=== PATIENT | male | born 1955 | race Caucasian/White ===

== ENCOUNTER 2016-06-27 11:54 | Emergency (ER) | payer OTHER ==
--- NOTE | 2016-06-27 13:28 | ED NURSING NOTES ---
Clinical Report - Nurses [facility] [address] [place] [address] 06/27/2016 11:55 Patient: JACKELYN MAK TRIAGE Triage time 12:Jun 27 2016. Acuity: LEVEL 4. Chief Complaint: REDNESS, PAIN and VISION PROBLEM TO RIGHT EYE. 12:14 06/27/16. SEPSIS SCREEN: Sepsis Screen. Negative (no infection suspected/documented). LAKISHA COMA SCORE: [place] Coma Scale: 15- eyes open spontaneously (4); best verbal response- oriented x 4 (5); best motor response- obeys commands (6). --12:14 Lilian Morris R.N. 12:06 06/27/16. BP: 132/73 (regular adult cuff) taken on the left arm, while sitting. HR: 66. RR: 18 (regular). O2 saturation: 98% on room air. Temp: 98.1 F (oral). Pain level now: 5/10. Additional comments: In right eye. --12:14 Lilian Morris R.N. Weight: 140.6 kg stated. Height/Length: 72 inches Per Patient. BMI: 42.1. --12:11 Lilian Morris R.N. Medications Antidepressant. Omeprazole Oral. --12:10 Lilian Morris R.N. Xarelto Oral (Tablet 15 mg) 1 tablet, daily. --12:33 Lilian Morris R.N. Allergies No Known Drug Allergy. --12:10 Lilian Morris R.N. History Arrived by private vehicle. Historian: patient. Primary physician (Dr Adler). Onset. (three weeks ago). Mechanism- Napkin went in patients eye while blowing nose. He has had eye discomfort, eye irritation and blurred vision. He has had a moderate amount of watery discharge from the right eye. 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 PAST MEDICAL HX: Hypertension. SOCIAL HX: Smoker- current status unknown. Occasional alcohol use; consumes beer. No drug use. No infectious disease exposure. ABUSE ASSESSMENT: No report of abuse. --12:14 Lilian Morris R.N. PROBLEMS: Dyspnea. Chest Wall Pain. Anxiety Reaction. Esophageal Foreign Body. Hypertension. Gastroesophageal Reflux Disease. --12:11 Lilian Morris R.N. ADDITIONAL SURGERIES: no known surgeries. Interventions ID band on patient. To treatment room. --12:14 Lilian Morris R.N. PHYSICAL ASSESSMENT 12:18 06/27/16. Ambulatory to room. GENERAL / NEURO / PSYCH: Alert. Appears in no acute distress. HEENT: No facial asymmetry noted. Pupils equal, round and reactive to light. ( Patient reports he had a visual acuity test done yesterday at physicians and doesn't remember results, He complains of blurred vision). Runny nose. ( patient says his nose is swollen and his right ear was hurting but after abx drops that has gone away). RESPIRATORY: Respirations not labored. CVS: Capillary refill less than 2 seconds. SKIN: Skin is warm. Normal skin turgor. --12:18 Lilian Morris R.N. ( Patient refused visual acuity until he sees the physician). --12:34 Lilian Morris R.N. NURSING PROGRESS NOTES 12:18 06/27/16. The plan of care for this patient has been created. Head of bed elevated. Reassurance given. Two patient identifiers checked. Call light placed in reach. Bed placed in lowest position. Brakes of bed on. Patient ready for evaluation- chart flagged and ED physician notified. --12:18 Lilian Morris R.N. DISPOSITION / DISCHARGE Departure time: 13:34. No learning barriers present. Discharge instructions provided and reviewed with the patient. Reviewed medication(s) side effects information. Prescription(s) given to the patient. Treatments reviewed. Reviewed referral to an performance improvement coordinator. Patient verbalized understanding. Written instructions provided in Moroccan. The patient was discharged by the physician junior administrative assistant. He was discharged home. He left the Emergency Department ambulatory and via private vehicle. Patient driving. --13:34 Herminia De Los Santos R.N. 13:32 06/27/16. BP: 129/74. HR: 73. RR: 18. O2 saturation: 95%. --13:34 Herminia De Los Santos R.N. Locked/Released at 06/27/2016 17:58 by Lilian Morris R.N.
--- NOTE | 2016-06-27 13:28 | ED CLINICAL REPORT ---
Clinical Report - Physicians/Mid Levels [facility] [address] [place] [address] 06/27/2016 11:55 Patient: JACKELYN MAK Time Seen: 13:07; initial patient contact, initial documentation, patient care assumed. Arrived- By private vehicle. Historian- patient. HISTORY OF PRESENT ILLNESS Chief Complaint: EYE PAIN. This started about 3 weeks ago, involves the right eye, is characterized as moderate in severity and has been constant and is still present. The patient may have sustained an injury. Mechanism- napkin went into eye while blowing nose. Eye pain, redness, irritation and discharge. Blurred vision. ( went to dr after it happened, and was given eye drop, went back to dr yesterday, was told he needed to see eye dr, but he can't find one that takes his insurance, waiting on referral from pcp, does not know name of abx gtts, but almost out). REVIEW OF SYSTEMS All systems otherwise negative, except as recorded above. PAST HISTORY See nurses notes. PROBLEMS: Dyspnea. Chest Wall Pain. Anxiety Reaction. Esophageal Foreign Body. Hypertension. Gastroesophageal Reflux Disease. --12:11 Lilian Morris RCatarino. ADDITIONAL SURGERIES: no known surgeries. SOCIAL HISTORY Light tobacco smoker. Occasional alcohol use. History of occasional drug use: marijuana. FAMILY HISTORY No significant family medical history. ADDITIONAL NOTES The nursing notes have been reviewed with agreement regarding the chief complaint, HPI, ROS, PMH and patient medications and allergies. PHYSICAL EXAM Vital Signs: 06/27/2016 12:06 BP: 132/73. HR: 66. RR: 18. O2 saturation: 98%. Temp: 98.1 F. Pain level now: 5/10. Have been reviewed as normal and appear to be correct. Appearance: Alert. Oriented X3. No acute distress. HEENT: Nose normal. Head appears normal to external inspection. Rt Eye: Right eye exam normal. (ulcer seen about 4:00 position). Medium sized circular ulceration located inferiorly and medially. No corneal perforation or burn. Eyes: Eyelids appear normal to inspection. Conjunctivae and sclerae appear normal to inspection. Corneas do not appear normal to inspection. Pupils equal, round and reactive to light. Accommodation normal. Funduscopic exam normal. Visual perez normal. EOMs intact. Periorbital areas appear normal to inspection. Anterior chambers clear. Anterior chambers of normal depth. Lt Eye: Left eye exam normal. Neck: Neck supple. Normal inspection. Respiratory: No respiratory distress. Skin: No rash. Extremities: Extremities negative. Neuro: Oriented X 3. Mood/affect normal. No motor deficit. No sensory deficit. PROGRESS AND PROCEDURES Course of Care: pt instructed to stop calling the eye drs offices to see what insurance they would take, and to call the number directly on his insurance card and find out whom is in his plan, or get online, encouraged to see opthmalogy edwina pt refused eye vision test. Patient counseled in person regarding the patient's stable condition and diagnosis. 13:28. Differential Diagnosis: Other possible considerations: corneal abrasion, ulcer, fb, infection, conjunctivitis. Above considerations are based on history and physical exam. Differential diagnosis was discussed with patient. Disposition: Discharged home in good and unchanged condition (13:28). Condition: good and stable. 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 INSTRUCTIONS Warnings: GENERAL WARNINGS: Return or contact your physician immediately if your condition worsens or changes unexpectedly, if not improving as expected, or if other problems arise. Specifically return if problem worsens. Prescription Medications: Garamycin ophthalmic ointment 0.3% : Apply 1/2 inch to inner aspect of the lower lid on the affected eye every 8 hours for 1 week. Dispense three and one half (3.5) gm. No refills. Substitution is permissible. Understanding of the discharge instructions verbalized by patient. Follow-up with: Stephanie Ahumada MD, Ophthalmology, [facility], [address] [place] [address] - [address], [place] [address]; Danny Mays MD, Ophthalmology, , [facility], [address] [place] [address]; Jacobo Rodriguez MD, Ophthalmology, , [address], [facility] [address]; Danny Hermosillo MD, Ophthalmology, , [address] [facility], [place] [id number]; Yuriy Acosta MD, Ophthalmology, , [address], [place], [address]; Deshaun Hernandez MD, Ophthalmology, , [address], , [place], [address]; Damari Zaman MD, Ophthalmology, , [address] [facility], [place], [address]; Danny Maguire MD, Ophthalmology, , [facility], [address] [place] [address] Follow up today even if well. Call for an appointment. Summary of care provided to patient. (Electronically signed by Evangelina Villalobos A.R.N.P. 06/27/2016 15:21)
--- NOTE | 2016-06-27 13:28 | ED CLINICAL REPORT ---
Clinical Report - Physicians/Mid Levels [facility] [address] [place] [address] 06/27/2016 11:55 Patient: JACKELYN MAK Time Seen: 13:07; initial patient contact, initial documentation, patient care assumed. Arrived- By private vehicle. Historian- patient. HISTORY OF PRESENT ILLNESS Chief Complaint: EYE PAIN. This started about 3 weeks ago, involves the right eye, is characterized as moderate in severity and has been constant and is still present. The patient may have sustained an injury. Mechanism- napkin went into eye while blowing nose. Eye pain, redness, irritation and discharge. Blurred vision. ( went to dr after it happened, and was given eye drop, went back to dr yesterday, was told he needed to see eye dr, but he can't find one that takes his insurance, waiting on referral from pcp, does not know name of abx gtts, but almost out). REVIEW OF SYSTEMS All systems otherwise negative, except as recorded above. PAST HISTORY See nurses notes. PROBLEMS: Dyspnea. Chest Wall Pain. Anxiety Reaction. Esophageal Foreign Body. Hypertension. Gastroesophageal Reflux Disease. --12:11 Lilian Morris RCatarino. ADDITIONAL SURGERIES: no known surgeries. SOCIAL HISTORY Light tobacco smoker. Occasional alcohol use. History of occasional drug use: marijuana. FAMILY HISTORY No significant family medical history. ADDITIONAL NOTES The nursing notes have been reviewed with agreement regarding the chief complaint, HPI, ROS, PMH and patient medications and allergies. PHYSICAL EXAM Vital Signs: 06/27/2016 12:06 BP: 132/73. HR: 66. RR: 18. O2 saturation: 98%. Temp: 98.1 F. Pain level now: 5/10. Have been reviewed as normal and appear to be correct. Appearance: Alert. Oriented X3. No acute distress. HEENT: Nose normal. Head appears normal to external inspection. Rt Eye: Right eye exam normal. (ulcer seen about 4:00 position). Medium sized circular ulceration located inferiorly and medially. No corneal perforation or burn. Eyes: Eyelids appear normal to inspection. Conjunctivae and sclerae appear normal to inspection. Corneas do not appear normal to inspection. Pupils equal, round and reactive to light. Accommodation normal. Funduscopic exam normal. Visual perez normal. EOMs intact. Periorbital areas appear normal to inspection. Anterior chambers clear. Anterior chambers of normal depth. Lt Eye: Left eye exam normal. Neck: Neck supple. Normal inspection. Respiratory: No respiratory distress. Skin: No rash. Extremities: Extremities negative. Neuro: Oriented X 3. Mood/affect normal. No motor deficit. No sensory deficit. PROGRESS AND PROCEDURES Course of Care: pt instructed to stop calling the eye drs offices to see what insurance they would take, and to call the number directly on his insurance card and find out whom is in his plan, or get online, encouraged to see opthmalogy edwina pt refused eye vision test. Patient counseled in person regarding the patient's stable condition and diagnosis. 13:28. Differential Diagnosis: Other possible considerations: corneal abrasion, ulcer, fb, infection, conjunctivitis. Above considerations are based on history and physical exam. Differential diagnosis was discussed with patient. Disposition: Discharged home in good and unchanged condition (13:28). Condition: good and stable. 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 INSTRUCTIONS Warnings: GENERAL WARNINGS: Return or contact your physician immediately if your condition worsens or changes unexpectedly, if not improving as expected, or if other problems arise. Specifically return if problem worsens. Prescription Medications: Garamycin ophthalmic ointment 0.3% : Apply 1/2 inch to inner aspect of the lower lid on the affected eye every 8 hours for 1 week. Dispense three and one half (3.5) gm. No refills. Substitution is permissible. Understanding of the discharge instructions verbalized by patient. Follow-up with: Stephanie Ahumada MD, Ophthalmology, [facility], [address] [place] [address] - [address], [place] [address]; Danny Mays MD, Ophthalmology, , [facility], [address] [place] [address]; Jacobo Rodriguez MD, Ophthalmology, , [address], [facility] [address]; Danny Hermosillo MD, Ophthalmology, , [address] [facility], [address], [place] [id number]; Yuriy Acosta MD, Ophthalmology, , [address], [place], [address]; Deshaun Hernandez MD, Ophthalmology, , [address], , [place], [address]; Damari Zaman MD, Ophthalmology, , [address] [facility], [place], [address]; Danny Maguire MD, Ophthalmology, , [facility], [address] [place] [address] Follow up today even if well. Call for an appointment. Summary of care provided to patient. (Electronically signed by Evangelina Villalobos A.R.N.P. 06/27/2016 15:21)
--- NOTE | 2016-06-27 13:28 | ED NURSING NOTES ---
Clinical Report - Nurses [facility] [address] [place] [address] 06/27/2016 11:55 Patient: JACKELYN MAK TRIAGE Triage time 12:Jun 27 2016. Acuity: LEVEL 4. Chief Complaint: REDNESS, PAIN and VISION PROBLEM TO RIGHT EYE. 12:14 06/27/16. SEPSIS SCREEN: Sepsis Screen. Negative (no infection suspected/documented). LAKISHA COMA SCORE: [place] Coma Scale: 15- eyes open spontaneously (4); best verbal response- oriented x 4 (5); best motor response- obeys commands (6). --12:14 Lilian Morris R.N. 12:06 06/27/16. BP: 132/73 (regular adult cuff) taken on the left arm, while sitting. HR: 66. RR: 18 (regular). O2 saturation: 98% on room air. Temp: 98.1 F (oral). Pain level now: 5/10. Additional comments: In right eye. --12:14 Lilian Morris R.N. Weight: 140.6 kg stated. Height/Length: 72 inches Per Patient. BMI: 42.1. --12:11 Lilian Morris R.N. Medications Antidepressant. Omeprazole Oral. --12:10 Lilian Morris R.N. Xarelto Oral (Tablet 15 mg) 1 tablet, daily. --12:33 Lilian Morris R.N. Allergies No Known Drug Allergy. --12:10 Lilian Morris R.N. History Arrived by private vehicle. Historian: patient. Primary physician (Dr Adler). Onset. (three weeks ago). Mechanism- Napkin went in patients eye while blowing nose. He has had eye discomfort, eye irritation and blurred vision. He has had a moderate amount of watery discharge from the right eye. 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 PAST MEDICAL HX: Hypertension. SOCIAL HX: Smoker- current status unknown. Occasional alcohol use; consumes beer. No drug use. No infectious disease exposure. ABUSE ASSESSMENT: No report of abuse. --12:14 Lilian Morris R.N. PROBLEMS: Dyspnea. Chest Wall Pain. Anxiety Reaction. Esophageal Foreign Body. Hypertension. Gastroesophageal Reflux Disease. --12:11 Lilian Morris R.N. ADDITIONAL SURGERIES: no known surgeries. Interventions ID band on patient. To treatment room. --12:14 Lilian Morris R.N. PHYSICAL ASSESSMENT 12:18 06/27/16. Ambulatory to room. GENERAL / NEURO / PSYCH: Alert. Appears in no acute distress. HEENT: No facial asymmetry noted. Pupils equal, round and reactive to light. ( Patient reports he had a visual acuity test done yesterday at physicians and doesn't remember results, He complains of blurred vision). Runny nose. ( patient says his nose is swollen and his right ear was hurting but after abx drops that has gone away). RESPIRATORY: Respirations not labored. CVS: Capillary refill less than 2 seconds. SKIN: Skin is warm. Normal skin turgor. --12:18 Lilian Morris R.N. ( Patient refused visual acuity until he sees the physician). --12:34 Lilian Morris R.N. NURSING PROGRESS NOTES 12:18 06/27/16. The plan of care for this patient has been created. Head of bed elevated. Reassurance given. Two patient identifiers checked. Call light placed in reach. Bed placed in lowest position. Brakes of bed on. Patient ready for evaluation- chart flagged and ED physician notified. --12:18 Lilian Morris R.N. DISPOSITION / DISCHARGE Departure time: 13:34. No learning barriers present. Discharge instructions provided and reviewed with the patient. Reviewed medication(s) side effects information. Prescription(s) given to the patient. Treatments reviewed. Reviewed referral to an resident buyer. Patient verbalized understanding. Written instructions provided in Lithuanian. The patient was discharged by the physician psychologist research assistant. He was discharged home. He left the Emergency Department ambulatory and via private vehicle. Patient driving. --13:34 Herminia De Los Santos R.N. 13:32 06/27/16. BP: 129/74. HR: 73. RR: 18. O2 saturation: 95%. --13:34 Herminia De Los Santos R.N. Locked/Released at 06/27/2016 17:58 by Lilian Morris R.N.
--- NOTE | 2016-06-27 17:59 | ED MAR SUMMARY ---
..... Medication Administration Record [facility] [address] [place], [place] [id number] Patient: JACKELYN MAK Visit ID: [id number] 60y, M Weight: 140.6 kg Height/Length: 72 in BMI: 42.1 ALLERGIES: No Known Drug Allergy
--- NOTE | 2016-06-27 17:59 | ED MED RECONCILIATION SUMMARY ---
Patient: JACKELYN MAK Medication Reconciliation Report [facility] VisitID: [id number] [address] [place] [address] 60y, M Registration Date/Time: 06/27/2016 Weight: 140.6 kg Height/Length: 72 in. BMI: 42.1 ALLERGIES: No Known Drug Allergy The patient's Home Medications are listed below: THE FOLLOWING MEDICATIONS NEED TO BE RECONCILED: Antidepressant Omeprazole Oral Xarelto Oral (15 mg) 1 tablet, daily The source(s) of the original Home Medication information: Not obtained. The following Medications were given to the patient in the Emergency Department: None. The following Medications were prescribed to the patient: Garamycin ophthalmic ointment 0.3% : Apply 1/2 inch to inner aspect of the lower lid on the affected eye every 8 hours for 1 week. Dispense three and one half (3.5) gm. No refills. Substitution is permissible. -- Evangelina Villalobos A.R.N.P.
--- NOTE | 2016-06-27 17:59 | ED DISCHARGE INSTRUCTIONS ---
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 INSTRUCTIONS Warnings: GENERAL WARNINGS: Return or contact your physician immediately if your condition worsens or changes unexpectedly, if not improving as expected, or if other problems arise. Specifically return if problem worsens. Prescription Medications: Garamycin ophthalmic ointment 0.3% : Apply 1/2 inch to inner aspect of the lower lid on the affected eye every 8 hours for 1 week. Dispense three and one half (3.5) gm. No refills. Substitution is permissible. Understanding of the discharge instructions verbalized by patient. Follow-up with: [place] Ahumada MD, Ophthalmology, [facility], [address] [place] [address] - [address], [place] [address]; Danny Mays MD, Ophthalmology, , [place] [address]; Jacobo Rodriguez MD, Ophthalmology, , [address], [place] [address]; Danny Hermoisllo MD, Ophthalmology, , [address], [place] [address]; Yuriy Acosta MD, Ophthalmology, , [address], [place] [address]; Deshaun Hernandez MD, Ophthalmology, , [address], [place] [address]; Damari Zaman MD, Ophthalmology, , [address], [place] [address]; Danny Maguire MD, Ophthalmology, , [place] [address] Follow up today even if well. Call for an appointment. Summary of care provided to patient. ADDITIONAL INFORMATION Corneal Ulcer The cornea is the clear part of your eye in front of the iris (the colored portion). A corneal ulcer is an open sore on the cornea. The most common cause for a corneal ulcer is infection by bacteria, virus or fungus. A scratch to the cornea that becomes infected can lead to a corneal ulcer. Use of contact lenses also increases the risk of a bacterial infection in the cornea. Any condition that causes dry eyes, such as decreased tear production or inability to blink normally, will increase the risk of a corneal ulcer. Chemical injury to the eye is another risk factor for a corneal ulcer. If you have a corneal ulcer there may be redness, pain, increased tears and pus or mucus draining from the eye. Your vision may be blurry and the eyelid may swell. Corneal ulcers are very serious. They may cause permanent scarring to the eye with partial or complete blindness. Therefore, this condition must be treated very carefully. With proper treatment, corneal ulcers should improve in 2-3 weeks. Close follow up with an rn ed (an MD eye doctor) is essential. Home Care: Do not wear contact lenses until approved by your eye doctor. Apply a cool compress to the eye (towel soaked in cool water). Do not touch or rub your eye with your fingers. Wash your hands often to prevent spread of the infection to the other eye. You may use acetaminophen (Tylenol) or ibuprofen (Motrin, Advil) to control pain, unless another pain medicine was prescribed. [NOTE: If you have chronic liver or kidney disease or have ever had a stomach ulcer, talk with your doctor before using these medicines.] Use prescribed antibiotic eye drops or ointment exactly as directed. Follow Up with your eye doctor in 1-2 days or as advised by our staff. For more information, contact the [place] [employer] www.aao.org Get Prompt Medical Attention if any of the following occur: Worsening vision Increasing pain in the eye Increased discharge from the eye Fever of 100.4F(38C) or higher, or as directed by your healthcare provider You have been given the following additional information: Corneal Ulcer (Electronically signed by Evangelina Villalobos A.R.N.P. 06/27/2016 15:21)
--- NOTE | 2016-06-27 17:59 | ED DISCHARGE INSTRUCTIONS ---
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 INSTRUCTIONS Warnings: GENERAL WARNINGS: Return or contact your physician immediately if your condition worsens or changes unexpectedly, if not improving as expected, or if other problems arise. Specifically return if problem worsens. Prescription Medications: Garamycin ophthalmic ointment 0.3% : Apply 1/2 inch to inner aspect of the lower lid on the affected eye every 8 hours for 1 week. Dispense three and one half (3.5) gm. No refills. Substitution is permissible. Understanding of the discharge instructions verbalized by patient. Follow-up with: Stephanie Ahumada MD, Ophthalmology, [facility], [address] [place] [address] - [address], [place] [address]; Danny Mays MD, Ophthalmology, , [place] [address]; Jacobo Rodriguez MD, Ophthalmology, , [address], [place] [address]; Danny Hermosillo MD, Ophthalmology, , [address], [place] [address]; Yuriy Acosta MD, Ophthalmology, , [address], [place] [address]; Deshaun Hernandez MD, Ophthalmology, , [address], [place] [address]; Damari Zaman MD, Ophthalmology, , [address], [place] [address]; Danny Maguire MD, Ophthalmology, , [place] [address] Follow up today even if well. Call for an appointment. Summary of care provided to patient. ADDITIONAL INFORMATION Corneal Ulcer The cornea is the clear part of your eye in front of the iris (the colored portion). A corneal ulcer is an open sore on the cornea. The most common cause for a corneal ulcer is infection by bacteria, virus or fungus. A scratch to the cornea that becomes infected can lead to a corneal ulcer. Use of contact lenses also increases the risk of a bacterial infection in the cornea. Any condition that causes dry eyes, such as decreased tear production or inability to blink normally, will increase the risk of a corneal ulcer. Chemical injury to the eye is another risk factor for a corneal ulcer. If you have a corneal ulcer there may be redness, pain, increased tears and pus or mucus draining from the eye. Your vision may be blurry and the eyelid may swell. Corneal ulcers are very serious. They may cause permanent scarring to the eye with partial or complete blindness. Therefore, this condition must be treated very carefully. With proper treatment, corneal ulcers should improve in 2-3 weeks. Close follow up with an brake lining maker (an MD eye doctor) is essential. Home Care: Do not wear contact lenses until approved by your eye doctor. Apply a cool compress to the eye (towel soaked in cool water). Do not touch or rub your eye with your fingers. Wash your hands often to prevent spread of the infection to the other eye. You may use acetaminophen (Tylenol) or ibuprofen (Motrin, Advil) to control pain, unless another pain medicine was prescribed. [NOTE: If you have chronic liver or kidney disease or have ever had a stomach ulcer, talk with your doctor before using these medicines.] Use prescribed antibiotic eye drops or ointment exactly as directed. Follow Up with your eye doctor in 1-2 days or as advised by our staff. For more information, contact the [employer] [employer] www.aao.org Get Prompt Medical Attention if any of the following occur: Worsening vision Increasing pain in the eye Increased discharge from the eye Fever of 100.4F(38C) or higher, or as directed by your healthcare provider You have been given the following additional information: Corneal Ulcer (Electronically signed by Evangelina Villalobos A.R.N.P. 06/27/2016 15:21)
--- NOTE | 2016-06-27 17:59 | ED MAR SUMMARY ---
..... Medication Administration Record [facility] [address] [place], [place] [id number] Patient: JACKELYN MAK Visit ID: [id number] 60y, M Weight: 140.6 kg Height/Length: 72 in BMI: 42.1 ALLERGIES: No Known Drug Allergy
--- NOTE | 2016-06-27 17:59 | ED MED RECONCILIATION SUMMARY ---
Patient: JACKELYN MAK Medication Reconciliation Report [facility] VisitID: [id number] [address] [place] [address] 60y, M Registration Date/Time: 06/27/2016 Weight: 140.6 kg Height/Length: 72 in. BMI: 42.1 ALLERGIES: No Known Drug Allergy The patient's Home Medications are listed below: THE FOLLOWING MEDICATIONS NEED TO BE RECONCILED: Antidepressant Omeprazole Oral Xarelto Oral (15 mg) 1 tablet, daily The source(s) of the original Home Medication information: Not obtained. The following Medications were given to the patient in the Emergency Department: None. The following Medications were prescribed to the patient: Garamycin ophthalmic ointment 0.3% : Apply 1/2 inch to inner aspect of the lower lid on the affected eye every 8 hours for 1 week. Dispense three and one half (3.5) gm. No refills. Substitution is permissible. -- Evangelina Villalobos A.R.N.P.
== END 2016-06-27 13:35 | disposition home or self-care (01) ==
LOC: ED SRH 11:54
DX: H16.011 Central corneal ulcer, right eye (principal); I10 Essential (primary) hypertension; K21.9 Gastro-esophageal reflux disease without esophagitis; Z79.899 Other long term (current) drug therapy